=== PATIENT | male | born 1945 | race Caucasian/White ===

== ENCOUNTER 2021-04-01 01:26 | Outpatient (CLI) | payer OTHER, SELFPAY ==
--- NOTE | 2021-04-01 11:00 | DI.RAD_ITS ---
Exam(s) XR THORACIC SPINE COMPLETE EXAM: XR THORACIC SPINE COMPLETE CLINICAL HISTORY: ARTHRITIS M13.80. TECHNIQUE: 2D digital imaging was performed. COMPARISON: No exams were available for comparison FINDINGS: BONES: There is no fracture or destructive lesion. Endplate osteophytes are seen greater in the mid t horacic region. Slight scoliosis. DISKS:Interverebral disc spaces are maintained. No syndesmophytes visible. SOFT TISSUE: Visualized lungs are clear. IMPRESSION: Degenerative changes greatest at T6-7 through T8-9. DATA REPOSITORY: RADIATION DOSE DELIVERED:
--- NOTE | 2021-04-01 11:00 | DI.RAD_ITS ---
Exam(s) XR LUMBAR SPINE AP, LAT EXAM: XR LUMBAR SPINE AP, LAT CLINICAL HISTORY: ARTHRITIS M13.80. TECHNIQUE: 2D digital imaging was performed. COMPARISON: No exams were available for comparison FINDINGS: The vertebral bodies are well maintained in height. There are endplate osteophytes greatest at L4-5 on the left. There is moderate narrowing of the L4-5 disc space. There is minimal narrowing of the L3-4 disc space. There are endplate osteophytes projecting to the left at this level. There remaini ng disc spaces are well maintained. No spondylolysis, spondylolisthesis or scoliosis. Facet degener ative changes are noted greatest at L4-5 and L5-S1. Bilateral hip prostheses are partially included on the exam. The aorta is calcified and appears normal in diameter. IMPRESSION: Degenerative changes greatest at L4-5. DATA REPOSITORY: RADIATION DOSE DELIVERED:
== END 2021-04-01 01:46 ==
PROVIDERS: Visit Provider Chiropractor
DX: M47.814 Spondylosis without myelopathy or radiculopathy, thoracic region; M47.816 Spondylosis without myelopathy or radiculopathy, lumbar region; M47.817 Spondylosis without myelopathy or radiculopathy, lumbosacral region
CPT/HCPCS: 72072; 72100